=== PATIENT | male | born 1955 | race Two or more races ===

== ENCOUNTER 2017-12-10 07:39 | Day surgery (SDC) | payer BC ==
[2017-12-10 08:41] LABS: ADD MAN DIFF? NO
[2017-12-10 08:45] LABS: BASOPHILS % 0.4 % (0.0-2.0); EOSINOPHILS # 0.2 10^3/ul (0.0-0.5); EOSINOPHILS % 3.4 % (0.0-7.0); HEMATOCRIT 33.9 % (42.0-52.0); HEMOGLOBIN 11.4 g/dl (14.0-18.0); LYMPHOCYTES # 1.4 10^3/ul (0.8-2.9); MEAN CORPUSCULAR HEMOGLOBIN 29.5 pg (29.0-33.0); MEAN CORPUSCULAR HGB CONC 33.6 g/dl (32.0-37.0); MEAN CORPUSCULAR VOLUME 87.8 fl (82.0-101.0); MEAN PLATELET VOLUME 9.7 fl (7.4-10.4); MONOCYTE # 0.4 10^3/ul (0.3-0.9); MONOCYTES % 7.8 % (0.0-11.0); NEUTROPHIL # 3.2 10^3/ul (1.6-7.5); NEUTROPHILS % 61.2 % (39.0-77.0); PLATELET COUNT 183 10^3/UL (140-415); RED BLOOD COUNT 3.86 10^6/ul (4.70-6.10)
[2017-12-10 08:45] LABS: WHITE BLOOD COUNT 5.3 10^3/ul (4.8-10.8)
[2017-12-10 09:08] LABS: ANION GAP 13 (8-16); CARBON DIOXIDE 29 mmol/L (21-31); CHLORIDE 105 mmol/L (97-110); CHOL/HDL RATIO 7.7 RATIO; CHOLESTEROL 248 mg/dl (100-200); GLUCOSE 100 mg/dl (70-220); HDL CHOLESTEROL 32 mg/dl (30-78)
[2017-12-10 09:14] LABS: INR 0.88; PT RATIO 0.9
[2017-12-10] MEDS ORDERED: FENTAnyl 50 MCG/ML VIAL (09:14)
[2017-12-10] MEDS ORDERED: IODIXANOL LOCM 100 ML BTL (09:14)
[2017-12-10] MEDS ORDERED: VERAPAMIL 5 MG INJ (09:14)
[2017-12-10] MEDS ORDERED: LIDOCAINE 1% (MDV) 20 ML INJ (09:14)
[2017-12-10] MEDS ORDERED: MIDAZOLAM 1 MG/ML 2 ML INJ (09:14)
[2017-12-10] MEDS ORDERED: HEPARIN 1000 UNITS/ML 10 ML INJ (09:14)
[2017-12-10 09:15] LABS: BLOOD UREA NITROGEN 14 mg/dl (7-20); CALCIUM 8.9 mg/dl (8.4-10.2); PARTIAL THROMBOPLASTIN TIME 34.3 Sec (25.0-35.0); POTASSIUM 3.5 mmol/L (3.5-5.1); SODIUM 143 mmol/L (135-144)
[2017-12-10] MEDS ORDERED: NITROGLYCERIN (IC) 100 MCG/ML INJ (09:15)
[2017-12-10 09:30] LABS: LDL CHOLESTEROL,CALCULATED 96 mg/dl
[2017-12-10 09:31] LABS: TRIGLYCERIDES 602 mg/dl (0-149)
[2017-12-10] MEDS ORDERED: SOD CHLORIDE 0.9% 1,000 ML IV (10:36)
[2017-12-10] MEDS ORDERED: morphine 2 MG INJ IV (11:00)
[2017-12-10] MEDS ORDERED: ONDANSETRON 4 MG INJ IV (11:00)
[2017-12-10] MEDS ORDERED: AL HYDROX/MG HYDROX/SIMETH 30 ML CUP PO (11:00)
[2017-12-10] MEDS: ACETAMINOPHEN 325 MG TAB PO (12:55)
== END 2017-12-10 16:00 | disposition home or self-care (01) ==
LOC: SDS 07:39
DX: I25.10 Atherosclerotic heart disease of native coronary artery without angina pectoris (principal); R94.39 Abnormal result of other cardiovascular function study; I10 Essential (primary) hypertension; E11.9 Type 2 diabetes mellitus without complications; E78.5 Hyperlipidemia, unspecified
CPT/HCPCS: 71045; 80048; 80061; 85025; 85610; 85730; 93005; 93458

== ENCOUNTER 2018-01-13 06:11 | Inpatient (IN) | payer BC ==
[2018-01-13 07:15] LABS: ADD MAN DIFF? NO
[2018-01-13 07:18] LABS: BASOPHIL # 0.1 10^3/ul (0.0-0.1); BASOPHILS % 0.8 % (0.0-2.0); EOSINOPHILS # 0.2 10^3/ul (0.0-0.5); EOSINOPHILS % 3.5 % (0.0-7.0); HEMATOCRIT 38.6 % (42.0-52.0); HEMOGLOBIN 12.8 g/dl (14.0-18.0); LYMPHOCYTES # 1.6 10^3/ul (0.8-2.9); LYMPHOCYTES % 25.8 % (15.0-51.0); MEAN CORPUSCULAR HEMOGLOBIN 29.4 pg (29.0-33.0); MEAN CORPUSCULAR HGB CONC 33.2 g/dl (32.0-37.0); MEAN CORPUSCULAR VOLUME 88.5 fl (82.0-101.0); MEAN PLATELET VOLUME 9.9 fl (7.4-10.4); MONOCYTE # 0.6 10^3/ul (0.3-0.9); MONOCYTES % 9.4 % (0.0-11.0); NEUTROPHIL # 3.7 10^3/ul (1.6-7.5); NEUTROPHILS % 60.2 % (39.0-77.0); PLATELET COUNT 284 10^3/UL (140-415); RED BLOOD COUNT 4.36 10^6/ul (4.70-6.10); RED CELL DISTRIBUTION WIDTH 14.1 % (11.5-14.5)
[2018-01-13 07:18] LABS: WHITE BLOOD COUNT 6.2 10^3/ul (4.8-10.8)
[2018-01-13 07:20] LABS: INR 0.85; PROTIME 11.7 Sec (11.9-14.9); PT RATIO 0.9
[2018-01-13 07:21] LABS: PARTIAL THROMBOPLASTIN TIME 34.8 Sec (25.0-35.0)
[2018-01-13] MEDS ORDERED: LIDOCAINE 1% (MPF) 30 ML INJ (07:33)
[2018-01-13] MEDS ORDERED: GELATIN SIZE 100 SPONGE (07:33)
[2018-01-13] MEDS ORDERED: IOHEXOL 300MG/ML 30 ML BTL (07:34)
[2018-01-13] MEDS ORDERED: THROMBIN 5000 UNIT VIAL (07:34)
[2018-01-13] MEDS ORDERED: HEPARIN 1000 UNITS/ML 10 ML INJ (07:34)
[2018-01-13] MEDS ORDERED: IOHEXOL 300MG/ML 150 ML BTL (08:37)
[2018-01-13] MEDS ORDERED: SOD CHLORIDE 0.9% 100 ML (08:37)
== END 2018-01-13 11:46 | disposition home or self-care (01) | DRG 68 ==
LOC: REC 06:11
PROVIDERS: Thoracic Surgery (Cardiothoracic Vascular Surgery)
DX: I65.21 Occlusion and stenosis of right carotid artery (principal); Z53.9 Procedure and treatment not carried out, unspecified reason
CPT/HCPCS: 70498; 85025; 85610; 85730